=== PATIENT | female | born 1950 | race Caucasian/White ===

== ENCOUNTER 2020-08-05 10:19 | Day surgery (SDC) | payer OTHER ==
[2020-08-03 16:28] VITALS: BMI 27.1
[2020-08-05] MEDS ORDERED: DEXAMETHASONE SOD PHOSPHATE/PF 10 MG/ML SDV ONE (12:25)
[2020-08-05] MEDS ORDERED: ONDANSETRON 4 MG/2 ML VIAL IVPUSH PRN (12:26)
[2020-08-05] MEDS ORDERED: MIDAZOLAM HCL 2 MG/2 ML SINGLE DOSE VIAL ONE ×2 (12:26→14:26)
[2020-08-05] MEDS ORDERED: BUPIVACAINE HCL/PF 0.5% (5 MG/ML) 30 ML VIAL IJ ONE (12:26)
[2020-08-05] MEDS ORDERED: oxyCODONE HCL 5 MG TABLET PO PRN (12:26)
[2020-08-05] MEDS ORDERED: SODIUM CHLORIDE 0.9% P/F 10 ML VIAL IJ ONE (12:26)
[2020-08-05] MEDS ORDERED: LACTATED RINGERS SOLUTION 1,000 ML IV SCH (12:30)
[2020-08-05] MEDS ORDERED: PROPOFOL 20 ML ONE (12:43)
[2020-08-05] MEDS ORDERED: BUPIVACAINE HCL/PF 0.5% (5MG/ML) 10 ML VIAL ONE (12:43)
[2020-08-05] MEDS ORDERED: ceFAZolin SODIUM 1 GM VIAL ONE (12:56)
[2020-08-05] MEDS ORDERED: DEXAMETHASONE SOD PHOSPHATE 4 MG/1 ML VIAL ONE (12:56)
[2020-08-05] MEDS ORDERED: TRANEXAMIC ACID 1000 MG/10 ML VIAL ONE (13:17)
[2020-08-05 17:32] VITALS: TEMP 98.3
[2020-08-05 17:37] VITALS: BP 107/68; PULSE 100
== END 2020-08-05 17:10 | disposition home or self-care (01) ==
LOC: FASU 10:19
PROVIDERS: ATTEND Orthopaedic Surgery Sports Medicine
PROC: 0QSH04Z Reposition Left Tibia with Internal Fixation Device, Open Approach (ICD-10-PCS; 2020-08-05)
PROC: 0QSK04Z Reposition Left Fibula with Internal Fixation Device, Open Approach (ICD-10-PCS; principal; 2020-08-05 13:17)
DX: S82.842A Displaced bimalleolar fracture of left lower leg, initial encounter for closed fracture (principal); X58.XXXA Exposure to other specified factors, initial encounter; Y93.9 Activity, unspecified; Y92.9 Unspecified place or not applicable
CPT/HCPCS: 27814; C1713; 73610-TC-RT-FY; 73630-TC-RT-FY; 94760